=== PATIENT | male | born 1990 ===

== ENCOUNTER 2019-03-14 20:23 | Emergency (ER) | payer SELFPAY ==
[~2019-03-14] VITALS: Ht 188 cm; Wt 100.0 kg
[2019-03-14 20:37] VITALS: BP 135/85
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
--- NOTE | 2019-03-14 21:27 | NUR ---
PT IS MEDICALLY CLEAR READY TO GO
[2019-03-14] MEDS ORDERED: DIPH,PERTUSS(ACELL),TET VAC/PF 0.5 ML IM-VACC ONE ×2 (21:30)
--- NOTE | 2019-03-14 21:37 | NUR ---
GIVEN ADACEL IM DC INSTRUCTION TO [employer] PT UP AMBULATED WITH [employer]
== END 2019-03-14 21:43 | disposition home or self-care (01) ==
LOC: ED 21:37
DX: S80.212A Abrasion, left knee, initial encounter (principal); F10.10 Alcohol abuse, uncomplicated; Z00.00 Encounter for general adult medical examination without abnormal findings; V49.49XA Driver injured in collision with other motor vehicles in traffic accident, initial encounter; Y93.89 Activity, other specified; Y92.89 Other specified places as the place of occurrence of the external cause; Y99.8 Other external cause status
CPT/HCPCS: 90471; 90715; 99283